=== PATIENT | female | born 1955 | race Caucasian/White ===

== ENCOUNTER 2023-05-10 13:26 | Observation (INO) | payer MEDICARE ==
--- OUTSIDE RECORDS SUMMARY | 2023-05-10 13:29 | XMS REPORT | Clinical Summary ---
Author Name Unknown Organization [facility] Address [address] [place] [address] Care Team Providers Care Saddle Maker Name Role Phone Alva Burns MD Unavailable Edith Erazo MD Primary Care Provider [phone] Allergies Active Allergy Reactions Criticality Noted Date Comments Codeine Other (See Comments) ,Shortness Of Breath High 11/23/2015 Fainting. Hydroxyzine Hcl Rash Low 11/23/2015 Medications Medication Sig Dispensed Refills Start Date End Date Status anastrozole (ARIMIDEX) 1 mg tablet TK 1 T PO QAM 3 11/30/2018 Active acyclovir (ZOVIRAX) 800 mg tablet TK 1 T PO QAM 3 11/21/2018 Active DULoxetine (CYMBALTA) 60 mg capsule TK 1 C PO D 3 11/20/2018 Active gabapentin (NEURONTIN) 600 mg tablet TK 2 TS PO BID 3 11/20/2018 Active latanoprost (XALATAN) 0.005% ophthalmic solution PLACE 1 DROP IN BOTH EYES EVERY NIGHT AT BEDTIME 2 11/01/2018 Active PARoxetine (PAXIL) 20 mg tablet TK 1 T PO QD 3 12/28/2018 Active omeprazole (PriLOSEC) 40 MG capsule TK 1 C PO BID 1 10/13/2018 Active pravastatin (PRAVACHOL) 20 mg tablet TK 1 T PO HS 1 12/25/2018 Active venlafaxine (EFFEXOR) 37.5 mg tablet TK 1 T PO BID 3 11/24/2018 Active albuterol (VENTOLIN HFA,PROAIR HFA) 90 mcg/puff inhaler Inhale 2 puffs by mouth every 6 (six) hours as needed. 0 01/22/2018 Active Active Problems Patient Care Coordination No te Formatting of this note migh t be different from the original. COVID 19 test done at [facility] on 07/16-negative (not detected)-for procedure. 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 12/22/2018 Cancer Staging:Clinical: Unsigned Pathologic:Stage IA(pT1c, pN0(sn), cM0, G2, ER+, WA+, HER2-) - Signed by Felicitas Ny NP on 01/01/2019 Obstructive sleep apnea syndrome 01/22/2018 Osteopenia 12/03/2015 Surgical History Surgery Date Site/Laterality Comments APPENDECTOMY 02/18/1978 - 02/17/1979 MASTECTOMY 02/18/1993 - 02/17/1994 Bilateral BREAST LUMPECTOMY 02/19/2008 - 02/17/2009 RECONSTRUCTION BREAST WITH BREAST IMPLANT 02/18/1993 - 02/17/1994 has had done 3 times Medical History Medical History Date Comments Hypertension 2000 Hyperlipidemia 2000 Migraine 2000 Chronic fatigue syndrome 2007 Menopause 2000 Anemia 1998 Arthritis 2010 Depressive disorder 2011 Anxiety 2012 Obsessive-compulsive disorder 2011 Breast cancer 1993 Osteopenia 2010 Family History Medical History Relation Name Comments Breast cancer Maternal Aunt Barbra Prostate cancer Maternal Uncle Fernando Leukemia Paternal Grandfather Patricio Relation Name Status Comments Maternal Aunt Barbra (Age 42) Maternal Uncle Fernando (Age 50) Paternal Grandfather Patricio (Age 46) Social History Tobacco Use Types Packs/Day Years Used Date Smoking Tobacco: Never Smokeless Tobacco: Never Alcohol Use Standard Drinks/Week Comments Never 0 (1 standard drink = 0.6 oz pur e alcohol) Sex and Gender Information Value Date Recorded Sex Assigned at Female 01/25/2019 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 Gender Identity Female 01/25/2019 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 Sexual Orientation Not on file Obstetrics History Para Term AB IAB SAB Ectopic Multiple Livin g Live Births 4 4 Date Outcome GA Total Labor Labor/2nd/3rd Weight Sex Delivery Anes PTL Jennifer A1 A5 Name Cl in Comments Menarche-7 Parity-19 Fertility-none HRT-none BF-1 year Vaginal delivery x's 4 Menopause - age 45 Plan of Treatment Health Maintenance Due Date Last Done Comments COVID-19 Vaccine (#1) 1955 Influenza Vaccine 10/19/2022 11/24/2018 Care Teams Saddle Maker Relationship Specialty Start Date End Date Alva Burns MD PCP - External Referring Internal Medicine 11/25/18 Edith Erazo MD [address] [place] [address] PCP - General Breast Medical Oncology 01/22/19
--- NOTE | 2023-05-10 13:53 | RAD REPORT ---
EXAM DESCRIPTION: CT - Ct Stroke Brain Wo Cont - 05/10/2023 1:47 pm CLINICAL HISTORY: STROKE ALERT Headache, drowsiness COMPARISON: HEAD BRAIN W O CONTRAST dated 06/06/2014 TECHNIQUE: All CT scans are performed using dose optimization technique as appropriate and may inclu de automated exposure control or mA/KV adjustment according to patient size. FINDINGS: No intracranial hemorrhage, hydrocephalus or extra-axial fluid collection.Mild generalized brain atrophy is present with mild periventricular and deep white matter chronic microvascular ische nikita changes.No areas of brain edema or evidence of midline shift. The paranasal sinuses and mastoids are clear. The calvarium is intact. IMPRESSION: No acute intracranial abnormality.
[2023-05-10 14:01] LABS: Absolute Lymphocytes (CBC) 0.8 K/uL (0.7-4.9); Absolute Monocytes 0.4 K/uL (0.1-1.3); Absolute Neutrophil 10.6 K/uL (1.8-8.0); Basophils % 0.2 % (0-1.3); Hematocrit 45.5 % (36.0-45.0); Hemoglobin 15.1 g/dL (12.0-15.0); Lymphocytes % 7.1 % (15.3-44.8); MCH 31.7 pg (27.0-35.0); MCHC 33.3 g/dL (32.0-36.0); MCV 95.4 fL (80-100); MPV 6.6 fL (7.6-11.3); Monocytes % 3.7 % (3.3-12.3); Nucleated RBC Absolute Count 0.1 (0-0); Nucleated Red Blood Cells % 0.6 % (0-0); Platelets 386 thou/uL (152-406); RBC Red Blood Cell Count 4.77 M/uL (3.86-4.86); Red Cell Distribution Width 13.3 % (12.1-15.2)
[2023-05-10 14:06] LABS: PT Prothrombin Time 11.5 SECONDS (9.5-12.5); PTT, Activated Partial Thromb 29.3 SECONDS (24.3-36.9); Protime INR 1.05
[2023-05-10 14:14] LABS: Anion Gap 9.5 mEq/L (5.0-15.0); BUN Blood Urea Nitrogen 21 mg/dL (7-18); Bicarbonate 27 mEq/L (21-32); Glomerular Filtration Rate 58 ml/min (=/>90); Glucose Level 133 mg/dL (74-106); Potassium 3.5 mEq/L (3.5-5.1); Sodium Level 136 mEq/L (136-145); Troponin High Sensitivity < 3.0 pg/mL (<58.9)
--- NOTE | 2023-05-10 14:15 | RAD REPORT ---
EXAM DESCRIPTION: CT - Head angio - 05/10/2023 1:52 pm CLINICAL HISTORY: Weakness;Numbness Headache, drowsiness COMPARISON: Ct Stroke Brain Wo Cont dated 05/10/2023; HEAD BRAIN W O CONTRAST dated 06/06/2014 TECHNIQUE: CT angiography of the head was performed with MIPs. All CT scans are performed using dose optimization technique as appropriate and may include automated exposure control or mA/KV adjustment according to patient size. FINDINGS: No evidence of large vessel occlusion. No evidence of aneurysm is detected. No flow-limiti ng stenosis or vascular malformation identified. Antegrade flow is seen in the vertebral arteries. Left vertebral artery is mildly dominant. The visualized dural venous sinuses are patent. IMPRESSION: No significant flow abnormality is detected.
--- NOTE | 2023-05-10 14:18 | RAD REPORT ---
EXAM DESCRIPTION: CT - Neck Angio - 05/10/2023 1:52 pm CLINICAL HISTORY: weakness Headache, drowsiness, CVA symptomology COMPARISON: No comparisons TECHNIQUE: CT angiography of the neck vessels was performed with MIPs. All CT scans are performed using dose optimization technique as appropriate and may include automated exposure control or mA/KV adjustment according to patient size. FINDINGS: A left aortic arch is identified with normal three vessel configuration of the great vesse ls. No significant flow abnormality is seen of the common carotid bilaterally. Moderate hard plaque is seen both carotid bulbs, greater on the left. The findings result in stenosis less than 50% bilaterally based on NASCET criteria. Normal flow is seen within both vertebral arteries. IMPRESSION: Moderate hard plaquing is seen in both carotid bulbs, more significant on the left. The findings result in less than 50% stenosis bilaterally based on NASCET criteria. NASCET criteria used. Mild 0-49% stenosis Moderate 50-69% stenosis Severe 70-99% stenosis
[2023-05-10] MEDS ORDERED: ASPIRIN 81 MG CHEWABLE TABLET ONE (14:29)
[2023-05-10] MEDS ORDERED: FOLIC ACID 5 MG/ML VIAL ONE (14:30)
[2023-05-10] MEDS ORDERED: NA CHLORIDE 0.9% 100 ML ONE (14:30)
--- NOTE | 2023-05-10 14:47 | RAD REPORT ---
EXAM DESCRIPTION: RAD - Chest Single View - 05/10/2023 2:34 pm CLINICAL HISTORY: weakness Chest pain. COMPARISON: CHEST SINGLE VIEW dated 06/06/2014 FINDINGS: Portable technique limits examination quality. The lungs are grossly clear. The heart is normal in size. No displaced fractures. IMPRESSION: No acute intrathoracic process suspected.
--- NOTE | 2023-05-10 15:01 | EDPHYS ---
Physician Documentation [facility] Name: Roseanna Heck Age: 68 yrs Sex: Female : 1955 Arrival Date: 05/10/2023 Time: 13:26 Bed 17 Private MD: Mathew Diaz ED Physician Solo Mortensen HPI: 05/09 14:18 This 68 yrs old Female presents to ER via Ambulatory with complaints of Chest Pain, rn Dizziness, weakness. 14:19 The patient presents to the emergency department with weakness of the right upper rn extremity, right lower extremity, difficult walking, paresthesias of the right lower extremity, right upper extremity. Onset: The symptoms/episode began/occurred this morning. Associated signs and symptoms: Pertinent positives: weakness, Pertinent negatives: altered mental status, fever. Severity of symptoms: At their worst the symptoms were moderate in the emergency department the symptoms are unchanged. The patient has not experienced similar symptoms in the past. Patient reports woke up this morning with right-sided weakness and numbness already present. Was feeling a little strange last night as well. Went to lunch with family member and started to have difficulty walking and change in speech as well. Weakness and numbness has gotten worse and is requiring assistance to walk.. - Family history:: not pertinent. - Hospitalizations: : No recent hospitalization is reported. ROS: 14:19 Constitutional: Negative for fever, chills, and weight loss, Cardiovascular: Positive rn for chest pain Respiratory: Negative for shortness of breath, cough, wheezing, and pleuritic chest pain, Abdomen/GI: Negative for abdominal pain, nausea, vomiting, diarrhea, and constipation, MS/Extremity: Negative for injury and deformity, Skin: Negative for injury, rash, and discoloration, Neuro: Positive for right-sided weakness and numbness Exam: 14:19 Constitutional: This is a well developed, well nourished patient who is awake, alert, rn and in no acute distress. Cardiovascular: Regular rate and rhythm. No pulse deficits. Respiratory: No increased work of breathing, no retractions or nasal flaring. Neuro: Awake and alert, GCS 15, oriented to person, place, time, and situation. Left lower facial droop. Motor strength 4/5 RUE and RLE with drift present. Decreased sensation right upper extremity and right lower extremity. Ataxic gait and requiring assistance to ambulate to triage 14:59 ECG was reviewed by the Attending Physician. rn Vital Signs: 13:33 BP 140 / 89; Pulse 96; Resp 16; Pulse Ox 97% on R/A; iw 14:25 BP 144 / 77; Pulse 92; Resp 16; Temp 98.1(TE); Pulse Ox 99% on R/A; kd3 15:00 BP 126 / 72; Pulse 89; Resp 18; Pulse Ox 98% on R/A; db 15:30 BP 134 / 71; Pulse 86; Resp 18; Pulse Ox 99% on R/A; db 16:00 BP 125 / 83; Pulse 93; Resp 18; Pulse Ox 99% on R/A; db 17:57 BP 129 / 79; Pulse 92; Resp 16; Pulse Ox 99% on R/A; kd3 NIH Stroke Scale Scores: 14:30 NIHSS Score: 4 db Elena Coma Score: 14:30 Eye Response: spontaneous(4). Motor Response: obeys commands(6). Verbal Response: db oriented(5). Total: 15. MDM: 13:27 Patient medically screened. rn 14:59 Data reviewed: vital signs, nurses notes, lab test result(s), EKG, radiologic studies, rn CT scan, and as a result, I will admit patient. Consideration of Admission/Observation Patient was admitted/placed on observation. Escalation of care including admission/observation considered. ED course: Patient woke up with symptoms, last known normal was prior to going to bed last night at which point she already felt off. Patient not TNK candidate due to presentation outside of window. Troponin negative. CT head and angio is no acute LVO. Will admit to hospitalist service with neurology consult.. 14:59 Counseling: I had a detailed discussion with the patient and/or guardian regarding the rn historical points, exam findings, and any diagnostic results supporting the discharge/admit diagnosis, lab results, radiology results, the need for further work-up and treatment in the hospital. 05/09 13:37 Order name: Basic Metabolic Panel; Complete Time: 14:17 rn 05/09 13:37 Order name: CBC with Diff; Complete Time: 15:48 rn 05/09 13:37 Order name: High Sensitivity Troponin; Complete Time: 14:17 rn 05/09 13:37 Order name: Protime (+inr); Complete Time: 14:17 rn 05/09 13:37 Order name: Ptt, Activated; Complete Time: 14:17 rn 05/09 14:35 Order name: Manual Differential; Complete Time: 15:48 [facility] 05/09 14:36 Order name: CREATININE WHOLE BLOOD; Complete Time: 14:57 EDW[facility] 05/09 15:49 Order name: Urinalysis w/ reflexes; Complete Time: 17:41 rn 05/09 13:37 Order name: CT Head Angio; Complete Time: 14:17 rn 05/09 13:37 Order name: CT Neck Angio; Complete Time: 14:57 rn 05/09 13:37 Order name: CT Stroke Brain w/o Contrast; Complete Time: 14:17 rn 05/09 13:37 Order name: Stroke CXR 1 View; Complete Time: 14:57 rn 05/09 15:43 Order name: Echo with Doppler [facility] 05/09 15:43 Order name: Stroke Protocol [facility] 05/09 16:51 Order name: MRI; Complete Time: 17:41 [facility] 05/09 13:37 Order name: EKG; Complete Time: 13:38 rn 05/09 15:43 Order name: CONS Physician Consult [facility] 05/09 15:43 Order name: IRF Screen [facility] 05/09 15:43 Order name: Physical Therapy Consult [facility] 05/09 15:43 Order name: Speech Therapy Consult [facility] 05/09 13:37 Order name: Accucheck; Complete Time: 14:38 rn 05/09 13:37 Order name: Cardiac monitoring; Complete Time: 14:24 rn 05/09 13:37 Order name: EKG - Nurse/Tech; Complete Time: 14:24 rn 05/09 13:37 Order name: IV Saline Lock; Complete Time: 13:52 rn 05/09 13:37 Order name: Labs collected and sent; Complete Time: 13:52 rn 05/09 13:37 Order name: NPO; Complete Time: 14:24 rn 05/09 13:37 Order name: O2 Per Protocol; Complete Time: 14:24 rn 05/09 13:37 Order name: O2 Sat Monitoring; Complete Time: 14:24 rn 05/09 13:37 Order name: Stroke Swallow Screen; Complete Time: 14:36 rn EC:59 Rate is 92 beats/min. Rhythm is regular. QRS [place] is Normal. [place] interval is normal. QRS rn interval is normal. QT interval is normal. No Q waves. T waves are Normal. No ST changes noted. Clinical impression: NSR w/ Non-specific ST/T Changes. Interpreted by me. Reviewed by me. Administered Medications: 14:35 Drug: Aspirin PO Chewable Tablet 324 mg PO once; 81 mg tablets x 4 Route: PO; kd3 14:35 Drug: foLIC Acid IVPB 1 mg IVPB once Route: IVPB; Site: right antecubital; kd3 Disposition Summary: 05/10/23 15:01 Hospitalization Ordered Notes: Hospitalization Status: Inpatient Admission rn Provider: Betsy Kidd rn Location: Telemetry/MedSurg (Inpatient) rn Condition: Stable rn Problem: new rn Symptoms: are unchanged rn Bed/Room Type: Standard rn Room Assignment: 215(05/10/23 16:35) eb Diagnosis - Cerebral infarction, unspecified rn - Weakness rn - Paresthesia of skin rn - Facial weakness rn Forms: - Medication Reconciliation Form rn - SBAR form rn - Leadership Thank You Letter rn NIH Stroke Scale - NIH Stroke Score Date: 05/10/2023 Time: 14:30 Total Score = 4 10. Dysarthria (speech clarity - read or repeat words) - 0(Normal) 11. Extinction and Inattention (visual/tactile/auditory/spatial/personal) - 0(No abnormality) 1a. Level of Consciousness (LOC) - 0(Alert) 1b. Level of Consciousness (LOC) (Month \T\ Age) - 0(Both) 1c. LOC Commands (Open \T\ Closes Eyes/Machine Cage Maker) - 0(Both) 2. Best Gaze (Lateral Gaze Paresis) - 0(Normal) 3. Visual Field Loss - 0(No visual loss) 4. Facial Palsy - 1(Minor Paralysis) 5a. Left Arm: Motor (10-second hold) - 0(No drift) 5b. Right Arm: Motor (10-second hold) - 1(Drift) 6a. Left Leg: Motor (5-second hold - always test supine) - 0(No drift) 6b. Right Leg: Motor (5-second hold - always test supine) - 1(Drift) 7. Limb Ataxia (finger/nose \T\ heel/gore - test with eyes open) - 0(Absent) 8. Sensory Loss (pinprick arms/legs/face) - 1(Mild to moderate loss) 9. Best Language: Aphasia (description/naming/reading) - 0(No aphasia) Initials: db Signatures: Dispatcher [employer] Solo Walton MD MD rn Botello, Alyse Bradfodr RN RN kd3 Corrections: (The following items were deleted from the chart) 16:35 15:01 faustino terry
--- NOTE | 2023-05-10 15:01 | ER ---
Nurse's Notes [facility] Name: Roseanna Heck Age: 68 yrs Sex: Female : 1955 Arrival Date: 05/10/2023 Time: 13:26 Bed 17 Private MD: Mathew Diaz Diagnosis: Cerebral infarction, unspecified;Weakness;Paresthesia of skin;Facial weakness Presentation: 05/09 13:31 Chief complaint: Patient states: started with chest pain, got light headed, dizzy , iw feels weak, this morning her right side felt numb and tingly since this morning. 13:32 Acuity: VICK 2 iw 13:33 Ebola Screen: No symptoms or risks identified at this time. Risk Assessment: Do you iw want to hurt yourself or someone else? Patient reports no desire to harm self or others. 13:33 Method Of Arrival: Ambulatory iw Triage Assessment: 13:31 General: Appears in no apparent distress. Behavior is calm, cooperative. General: iw Reports feeling ill for fatigue for. Pain: Complains of pain in chest. Neuro: Level of Consciousness is awake, alert, obeys commands. Cardiovascular: Patient's skin is warm and dry. Derm: Skin is intact, is healthy with good turgor. - Family history:: not pertinent. - Hospitalizations: : No recent hospitalization is reported. Screenin:35 [place] Swallow Protocol Exclusion Criteria: Exclusion Criteria Result: Proceed Brief kd3 Cognitive Screen What is your name? Normal, Where are you right now? Normal, What year is it? Normal. Oral Mechanism Examination Facial Symmetry: Normal, Motion: Normal, Lip Closure: Normal, Oral Mechanism Result: Normal. 3 oz Water Swallow Challenge: Pt able to drink all water without stopping, coughing, choking or throat clearing: Yes Result: PASS MD Notified: Solo Mortensen MD. 14:35 [facility] ED Fall Risk Assessment (Adult) History of falling in the last 3 months, db including since admission No falls in past 3 months (0 pts) Confusion or Disorientation No (0 pts) Intoxicated or Sedated No (0 pts) Impaired Gait No (0 pts) Mobility Assist Device Used No (0 pt) Altered Elimination No (0 pt) Score/Fall Risk Level 0 - 2 = Low Risk. Abuse screen: Denies threats or abuse. Denies injuries from another. Nutritional screening: No deficits noted. Tuberculosis screening: No symptoms or risk factors identified. Assessment: 13:40 General: Pt escorted to the CT scanner by composite technician and myself. . kd3 13:52 General: Pt lab work collected and sent from the CT room by this RN . kd3 14:30 Reassessment: Patient appears in no apparent distress at this time. Patient and/or db family updated on plan of care and expected duration. Pain level reassessed. Patient is alert, oriented x 3, equal unlabored respirations, skin warm/dry/pink. General: Appears in no apparent distress. comfortable, Behavior is calm, cooperative. Pain: Complains of pain in chest. Neuro: Level of Consciousness is awake, alert, obeys commands, Oriented to person, place, time, situation. Respiratory: Airway is patent Respiratory effort is even, unlabored, Respiratory pattern is regular, symmetrical. 15:30 Reassessment: Patient appears in no apparent distress at this time. Patient and/or db family updated on plan of care and expected duration. Pain level reassessed. Patient is alert, oriented x 3, equal unlabored respirations, skin warm/dry/pink. 16:54 General: pT INFO FAXED TO FLOOR. . kd3 Vital Signs: 13:33 BP 140 / 89; Pulse 96; Resp 16; Pulse Ox 97% on R/A; iw 14:25 BP 144 / 77; Pulse 92; Resp 16; Temp 98.1(TE); Pulse Ox 99% on R/A; kd3 15:00 BP 126 / 72; Pulse 89; Resp 18; Pulse Ox 98% on R/A; db 15:30 BP 134 / 71; Pulse 86; Resp 18; Pulse Ox 99% on R/A; db 16:00 BP 125 / 83; Pulse 93; Resp 18; Pulse Ox 99% on R/A; db 17:57 BP 129 / 79; Pulse 92; Resp 16; Pulse Ox 99% on R/A; kd3 Elena Coma Score: 14:30 Eye Response: spontaneous(4). Motor Response: obeys commands(6). Verbal Response: db oriented(5). Total: 15. NIH Stroke Scale Scores: 14:30 NIHSS Score: 4 db ED Course: 13:27 Patient arrived in ED. mr 13:27 Mathew Diaz DO is Private Physician. mr 13:27 Solo Mortensen MD is Attending Physician. rn 13:32 Triage completed. iw 13:33 Arm band placed on. iw 13:48 CT Stroke Brain w/o Contrast In Process Unspecified. EDMS 13:49 Inserted saline lock: 20 gauge in right antecubital area, using aseptic technique. kd3 Blood collected. 13:49 Initial lab(s) drawn, by me, sent to lab. kd3 13:49 Patient maintains SpO2 saturation greater than 95% on room air. kd3 13:51 Ptt, Activated Sent. kd3 13:51 Protime (+inr) Sent. kd3 13:52 High Sensitivity Troponin Sent. kd3 13:52 CBC with Diff Sent. kd3 13:52 Basic Metabolic Panel Sent. kd3 13:54 CT Head Angio In Process Unspecified. EDMS 13:54 CT Neck Angio In Process Unspecified. EDMS 14:24 Alyse Saleh, RN is Primary Nurse. kd3 14:35 Warm blanket given. db 14:35 Report given to ELIZABETH ARIAS. db 14:36 Stroke CXR 1 View In Process Unspecified. EDMS 15:00 Betsy Kidd MD is Hospitalizing Provider. rn 16:27 Patient has correct armband on for positive identification. Placed in gown. Bed in low db position. Call light in reach. Side rails up X2. Client placed on continuous cardiac and pulse oximetry monitoring. NIBP monitoring applied. stock order lister on. Pulse ox on. NIBP on. Administered Medications: 14:35 Drug: Aspirin PO Chewable Tablet 324 mg PO once; 81 mg tablets x 4 Route: PO; kd3 14:35 Drug: foLIC Acid IVPB 1 mg IVPB once Route: IVPB; Site: right antecubital; kd3 Medication: 14:30 VIS not applicable for this client. db Outcome: 15:01 Decision to Hospitalize by Provider. rn 17:57 Patient left the ED. NIH Stroke Scale - NIH Stroke Score Date: 05/10/2023 Time: 14:30 Total Score = 4 10. Dysarthria (speech clarity - read or repeat words) - 0(Normal) 11. Extinction and Inattention (visual/tactile/auditory/spatial/personal) - 0(No abnormality) 1a. Level of Consciousness (LOC) - 0(Alert) 1b. Level of Consciousness (LOC) (Month \T\ Age) - 0(Both) 1c. LOC Commands (Open \T\ Closes Eyes/Elementary School Science Teacher) - 0(Both) 2. Best Gaze (Lateral Gaze Paresis) - 0(Normal) 3. Visual Field Loss - 0(No visual loss) 4. Facial Palsy - 1(Minor Paralysis) 5a. Left Arm: Motor (10-second hold) - 0(No drift) 5b. Right Arm: Motor (10-second hold) - 1(Drift) 6a. Left Leg: Motor (5-second hold - always test supine) - 0(No drift) 6b. Right Leg: Motor (5-second hold - always test supine) - 1(Drift) 7. Limb Ataxia (finger/nose \T\ heel/gore - test with eyes open) - 0(Absent) 8. Sensory Loss (pinprick arms/legs/face) - 1(Mild to moderate loss) 9. Best Language: Aphasia (description/naming/reading) - 0(No aphasia) Initials: db Signatures: Dispatcher [employer] EDMI HuertasMagdalena, Reg Reg mr Lorna Hills, RN RN iw Solo Mortensen MD MD rn Botello, Elizabeth eb Doucette, Kyli, RN RN kd3 Maryuri Jimenez RN RN db Corrections: (The following items were deleted from the chart) 13:34 13:33 Pulse 96bpm; Resp 16bpm; Pulse Ox 97% RA; iw iw
--- NOTE | 2023-05-10 15:09 | P.HP ---
Certification for Inpatient Patient admitted to: Observation With expected LOS: >2 Midnights Patient will require the following post-hospital care: None Practitioner: I am a practitioner with admitting privileges, knowledge of patient current condition, hospital course, and medical plan of care. Services: Services provided to patient in accordance with Admission requirements found in Title 42 Section 412.3 of the Code of Federal Regulations Patient History Date of Service: 05/10/23 Reason for admission: weakness History of Present Illness: Roseanna Heck is a 68 year old female with Pmhx HTN, HLD, Hypothyroidism, anxiety, GERD, asthma who presents to the ED with chief complaint of dizziness, weakness, chest pain. She reports being NPO for a lab draw this morning, her daughter took her to lunch at a [id number] restaurant and while there she felt weak, dizzy, nausous, and had diarrhea. She called her daughter to come to the restroom and help her walk. Her daughter is at the bedside and is a good historian, she reports that for a month her mother has experienced a bad head, trouble walking, and her right side of her body will start hurting like sharp tingling. Daughter also reports confusion has increased this last month. On examination, she has some slurred speech and aphasia present. NIHSS 2. She is afebrile, hemodynamically stable, on RA with satisfactory oxygenation. Initial vitals: BP 140 / 89; Pulse 96; Resp 16; Pulse Ox 97% on R/A laboratory evaluation WBC 11.9, H/H 15/45, Platelets 386, na136, K 3.5, BUN/creatinine 21/1.04, GFR 58, serum glucose 133, troponin <3.0. Head CT reports 'No intracranial hemorrhage, hydrocephalus or extra-axial fluid collection.Mild generalized brain atrophy is present with mild periventricular and deep white matter chronic microvascular ischemic changes.No areas of brain edema or evidence of midline shift. The paranasal sinuses and mastoids are clear. The calvarium is intact. IMPRESSION: No acute intracranial abnormality.' Head CTA reports " No evidence of large vessel occlusion. No evidence of aneurysm is detected. No flow-limiting stenosis or vascular malformation identified. Antegrade flow is seen in the vertebral arteries. Left vertebral artery is mildly dominant. The visualized dural venous sinuses are patent. IMPRESSION: No significant flow abnormality is detected." Neck CTA reports "Moderate hard plaquing is seen in both carotid bulbs, more significant on the left. The findings result in less than 50% stenosis bilaterally based on NASCET criteria." MRI brain reports "No intracranial hemorrhage, hydrocephalus or extra-axial fluid collections.Generalized brain atrophy. No edema or shift of midline structures. No findings to suspect brain mass. DWI is negative for acute CVA. Midline structures are normally formed. Mastoid air cells and paranasal sinuses are clear. IMPRESSION: Negative for acute CVA or other acute abnormality." EKG Rate is 92 beats/min. Rhythm is regular. QRS [place] is Normal. [place] interval is normal. QRS interval is normal. QT interval is normal. No Q waves. T waves are Normal. No ST changes noted. Clinical impression: NSR w/ Non-specific ST/T Changes. Chest xray reports "The lungs are grossly clear. The heart is normal in size. No displaced fractures. IMPRESSION: No acute intrathoracic process suspected." Roseanna will be admitted to hospitalist service for further evaluation and treatment of acute CVA r/o. Dr. Madden has been consulted. Allergies No Known Allergies Allergy (Unverified 06/06/14 23:18) Home Medications: Acyclovir 1 tab PO DAILY 05/10/23 Albuterol Inhaler [Ventolin Inhaler*] 2 puff IH BID 05/10/23 Brompheniramine/Pseudoephed/Dm [Bromfed Dm 2-30-10 mg/5 ml Syr] 5 ml PO TIDP PRN 05/10/23 Duloxetine HCl 60 mg PO DAILY 05/10/23 Ergocalciferol (Vitamin D2) [Drisdol] 1,250 mcg PO SEECOM 05/10/23 Fluticasone Propionate [Flovent Diskus] 1 puff IH BID 05/10/23 Gabapentin [Neurontin] 1 tab PO BID 05/10/23 Levothyroxine [Synthroid] 50 mcg PO [id number] 05/10/23 Lisinopril/Hydrochlorothiazide [Lisinopril-Hctz 20-25 mg Tab] 0.5 tab PO DAILY 05/10/23 Loratadine [Claritin*] 10 mg PO DAILY 05/10/23 Omeprazole [Prilosec] 40 mg PO BID 05/10/23 Pravastatin [Pravachol*] 1 tab PO BEDTIME 05/10/23 Topiramate [Topamax] 50 mg PO BID 05/10/23 Valacyclovir HCl [Valacyclovir] 1 tab PO DAILY 05/10/23 Venlafaxine HCl [Effexor*] 37.5 mg PO DAILY 05/10/23 methocarbamoL [Methocarbamol] 750 mg PO PRN 05/10/23 - Past Medical/Surgical History -: breast cancer 24 years -: HTN -: HLD -: asthma -: naxiety -: GERD -: bilateral mastectomy - Social History Smoking Status: Never smoker Alcohol use: No CD- Drugs: No Review of Systems General: Weakness Cardiovascular: Chest Pain Musculoskeletal: Other (right side of body with stinging tingling) Neurological: Change in Speech, Confusion Physical Examination - Physical Exam General: Alert, In no apparent distress, Oriented x3 HEENT: Atraumatic, Normocephalic, PERRLA Neck: Supple, 2+ carotid pulse no bruit, JVD not distended Respiratory: Clear to auscultation bilaterally, Normal air movement Cardiovascular: Normal pulses, Regular rate/rhythm, Normal S1 S2 Capillary refill: <2 Seconds Gastrointestinal: Normal bowel sounds, Soft and benign, Non-distended Musculoskeletal: No clubbing, No contractures Integumentary: No rashes Neurological: Normal strength at 5/5 x4 extr, Normal tone, Abnormal speech (slurred) - Studies Laboratory Data (last 24 hrs) 05/10/23 05/10/23 05/10/23 13:49 13:49 13:49 WBC 11.90 H Hgb 15.1 H Hct 45.5 H Plt Count 386 PT 11.5 INR 1.05 APTT 29.3 Sodium 136 Potassium 3.5 BUN 21 H Creatinine 1.04 H Glucose 133 H Assessment and Plan - Plan Assessment and plan Acute CVA r/o Generalized Weakness Chest Pain -Head CT reports 'No intracranial hemorrhage, hydrocephalus or extra-axial fluid collection.Mild generalized brain atrophy is present with mild periventricular and deep white matter chronic microvascular ischemic changes.No areas of brain edema or evidence of midline shift. The paranasal sinuses and mastoids are clear. The calvarium is intact. IMPRESSION: No acute intracranial abnormality.' -Head CTA reports " No evidence of large vessel occlusion. No evidence of aneurysm is detected. No flow-limiting stenosis or vascular malformation identified. Antegrade flow is seen in the vertebral arteries. Left vertebral artery is mildly dominant. The visualized dural venous sinuses are patent. IMPRESSION: No significant flow abnormality is detected." -Neck CTA reports "Moderate hard plaquing is seen in both carotid bulbs, more significant on the left. The findings result in less than 50% stenosis bilat erally based on NASCET criteria." -MRI brain reports "No intracranial hemorrhage, hydrocephalus or extra-axial fluid collections.Generalized brain atrophy. No edema or shift of midline structures. No findings to suspect brain mass. DWI is negative for acute CVA. Midline structures are normally formed. Mastoid air cells and paranasal sinuses are clear. IMPRESSION: Negative for acute CVA or other acute abnormality." -CXR "No acute intrathoracic process suspected" -EKG without ST changes - Dr. Madden consulted -Asa. plavix, statin, folic acid daily -ECHO ordered -PT/TEACHER'S ASSISTANT consulted -A1C, lipid panel, TSH/freeT4 pending -Allow permissive HTN tonight -NIHSS 2 d/t aphasia and dysarthria History of HTN History of HLD History of hypothyroidism- not on medication at this time History of anxiety History of GERD History of Asthma -Restart home medications when available and when appropriate DVT ppx lovenox Full code LOS 2 days Discharge Plan: Home Plan to discharge in: 24 Hours - Advance Directives Does patient have a Living Will: No Does patient have a Durable POA for Healthcare: No Time Spent Managing Pts Care (In Minutes): 50
[2023-05-10 15:37] LABS: Band Neutrophils 17 % (0-1); Differential Total Cells Count 100; Lymphocytes 4 % (15-42); Monocytes 6 % (0-10); Reactive Lymphocytes 3 %; Segmented Neutrophils 70 % (40-80)
[2023-05-10 15:38] LABS: Blood Morphology Comment NOT SEEN (NOT SEEN); Platelet Estimate ADEQ
--- NOTE | 2023-05-10 16:51 | RAD REPORT ---
EXAM DESCRIPTION: MRI - Brain Wo Cont - 05/10/2023 4:44 pm CLINICAL HISTORY: CVA r/o Headache, drowsiness, CVA symptomology COMPARISON: Head angio dated 05/10/2023 TECHNIQUE: Multi-sequence, multiplanar MR imaging of the brain was performed without contrast. FINDINGS: No intracranial hemorrhage, hydrocephalus or extra-axial fluid collections.Generalized bra in atrophy. No edema or shift of midline structures. No findings to suspect brain mass. DWI is negati ve for acute CVA. Midline structures are normally formed. Mastoid air cells and paranasal sinuses are clear. IMPRESSION: Negative for acute CVA or other acute abnormality.
[2023-05-10 17:10] LABS: Sqamous Epithelial <5 /HPF (None Seen); Urine Bacteria None Seen /HPF (<20); Urine Bilirubin NEGATIVE (Negative); Urine Blood Negative (Negative); Urine Clarity Clear (Clear); Urine Color Light-Yellow (Yellow); Urine Culture Reflex Order NOT NEEDED; Urine Glucose NEGATIVE (Negative); Urine Ketones NEGATIVE (Negative); Urine Microscopic Reflex YN ORDER UMIC; Urine Mucus Slight /HPF (None Seen); Urine Nitrite NEGATIVE (Negative); Urine Protein TRACE (Negative); Urine RBC <5 /HPF (None Seen); Urine Urobilinogen Normal (Normal); Urine WBC <5 /HPF (<5)
[2023-05-10 17:39] LABS: Specific Gravity > 1.030 (1.005-1.030)
[2023-05-10] MEDS: NA CHLORIDE 0.9% 1,000 ML IV SCH (18:29)
[2023-05-10 18:54] VITALS: BMI 27.1
[2023-05-10] MEDS ORDERED: PNEUMOCOCCAL VACCINE 0.5 ML IMVAC ONE (20:00)
[2023-05-10] MEDS ORDERED: INFLUENZA VACCINE (for 6+ mo) 0.5 ML DOSE IMVAC ONE (20:00)
[2023-05-10] MEDS: ATORVASTATIN 40 MG TAB PO SCH (20:30)
[2023-05-10] MEDS ORDERED: BROMFED DM PO PRN (22:02)
[2023-05-10] MEDS ORDERED: DRISDOL (VITAMIN D=ERGOCALCIFEROL) 50000 UNIT CAP PO SCH (23:00)
[2023-05-10] MEDS ORDERED: methocarbamoL 750 MG TAB PO SCH (23:00)
[2023-05-10] MEDS: MORPHINE 2 MG/ML SYR IV ONE (23:37)
[2023-05-11 01:45] VITALS: O2SAT 96
[2023-05-11] MEDS: ONDANSETRON 4 MG/2 ML VIAL ONE (02:47)
[2023-05-11] MEDS: ONDANSETRON 4 MG/2 ML VIAL IV PRN (02:48)
[2023-05-11] MEDS: LEVOTHYROXINE SOD 0.05 MG TABLET PO SCH (05:28)
[2023-05-11 07:14] LABS: Absolute Lymphocytes (CBC) 0.5 K/uL (0.7-4.9); Absolute Monocytes 0.4 K/uL (0.1-1.3); Absolute Neutrophil 4.7 K/uL (1.8-8.0); Basophils % 0.1 % (0-1.3); Hematocrit 38.6 % (36.0-45.0); Lymphocytes % 9.2 % (15.3-44.8); MCH 31.8 pg (27.0-35.0); MCHC 33.8 g/dL (32.0-36.0); MCV 94.2 fL (80-100); MPV 6.5 fL (7.6-11.3); Neutrophils % 83.7 % (41.7-73.7); Platelets 294 thou/uL (152-406); RBC Red Blood Cell Count 4.09 M/uL (3.86-4.86); Red Cell Distribution Width 13.1 % (12.1-15.2)
--- NOTE | 2023-05-11 07:41 | P.PN ---
Date of Service: 05/11/23 Subjective ROS 10 point ROS as noted above, otherwise negative Physical Exam General: Alert, In no apparent distress, Oriented x3 HEENT: Atraumatic, Normocephalic, PERRLA Neck: Supple, 2+ carotid pulse no bruit, JVD not distended Respiratory: Clear to auscultation bilaterally, Normal air movement Cardiovascular: Normal pulses, Regular rate/rhythm, Normal S1 S2 Capillary refill: <2 Seconds Gastrointestinal: Normal bowel sounds, Soft and benign, Non-distended Musculoskeletal: No clubbing, No contractures Integumentary: No rashes Neurological: Normal strength at 5/5 x4 extr, Normal tone, Abnormal speech (slurred) Vitals Reviewed Problem list Acute CVA vs TIA Generalized Weakness Chest Pain History of HTN History of HLD History of hypothyroidism History of anxiety History of GERD History of Asthma Assessment and Plan Acute CVA vs TIA Generalized Weakness Chest Pain -Head CT reports 'No intracranial hemorrhage, hydrocephalus or extra-axial fluid collection.Mild generalized brain atrophy is present with mild periventricular and deep white matter chronic microvascular ischemic changes.No areas of brain edema or evidence of midline shift. The paranasal sinuses and mastoids are clear. The calvarium is intact. IMPRESSION: No acute intracranial abnormality.' -Head CTA reports " No evidence of large vessel occlusion. No evidence of aneurysm is detected. No flow-limiting stenosis or vascular malformation identified. Antegrade flow is seen in the vertebral arteries. Left vertebral artery is mildly dominant. The visualized dural venous sinuses are patent. IMPRESSION: No significant flow abnormality is detected." -Neck CTA reports "Moderate hard plaquing is seen in both carotid bulbs, more significant on the left. The findings result in less than 50% stenosis bilaterally based on NASCET criteria." -MRI brain reports "No intracranial hemorrhage, hydrocephalus or extra-axial fluid collections.Generalized brain atrophy. No edema or shift of midline structures. No findings to suspect brain mass. DWI is negative for acute CVA. Midline structures are normally formed. Mastoid air cells and paranasal sinuses are clear. IMPRESSION: Negative for acute CVA or other acute abnormality." -CXR "No acute intrathoracic process suspected" -EKG without ST changes - Dr. Madden consulted -Asa. plavix, statin, folic acid daily -ECHO ordered -PT/TENNIS PLAYER consulted -A1C, lipid panel, TSH/freeT4 pending -Allow permissive HTN tonight -NIHSS 2 d/t aphasia and dysarthria History of HTN History of HLD History of hypothyroidism- not on medication at this time History of anxiety History of GERD History of Asthma -Restart home medications when available and when appropriate DVT ppx lovenox Full code LOS 2 days
[2023-05-11 07:44] LABS: Anion Gap 8.6 mEq/L (5.0-15.0); Phosphorus 2.1 mg/dL (2.5-4.9); Potassium 3.6 mEq/L (3.5-5.1); Thyroid Stimulating Hormone 0.425 uIU/mL (0.358-3.740)
[2023-05-11] MEDS: FLUTICASONE 50MCG NASAL SPRAY NAS SCH (09:00)
[2023-05-11] MEDS: lisinopriL 10 MG TAB PO SCH (09:00)
[2023-05-11] MEDS: HOME MED 1 EA UNK (Valacyclovir Hcl [Valacyclovir] 1,000 MG Tablet) PO SCH (09:00)
[2023-05-11] MEDS: VENLAFAXINE HCL XR 37.5MG CAP PO SCH (09:00)
[2023-05-11] MEDS: ALBUTEROL INHALER 200 PUFF/6.7 GM IH SCH (09:00)
[2023-05-11] MEDS: hydroCHLOROthiazide 12.5 MG CAP PO SCH (09:00)
[2023-05-11] MEDS: ACETAMINOPHEN 500 MG TAB PO PRN (10:13)
[2023-05-11] MEDS: PANTOPRAZOLE 40MG TABLET PO SCH (11:08)
[2023-05-11] MEDS: FOLIC ACID 1 MG TABLET PO SCH (11:09)
[2023-05-11] MEDS: LORATADINE 10 MG TAB PO SCH (11:09)
[2023-05-11] MEDS: ASPIRIN EC 81 MG TAB PO SCH (11:09)
[2023-05-11] MEDS: TOPIRAMATE 25 MG TAB PO SCH (11:10)
[2023-05-11] MEDS: DULOXETINE 30 MG CAP PO SCH (11:10)
[2023-05-11] MEDS: ACYCLOVIR 400 MG TABLET PO SCH (11:11)
[2023-05-11] MEDS: GABAPENTIN 300 MG CAP PO SCH (11:11)
[2023-05-11] MEDS: CLOPIDOGREL 75 MG TABLET PO SCH (11:12)
[2023-05-11] MEDS: ENOXAPARIN 40 MG/0.4 ML SQ SCH (11:18)
--- NOTE | 2023-05-11 13:12 | P.DS ---
Admission Date: 05/10/23 Discharge Date: 05/11/23 Disposition: ROUTINE DISCHARGE Discharge Condition: GOOD Reason for Admission: weakness Brief History of Present Illness: Diagnosis Acute CVA vs TIA Generalized Weakness Chest Pain History of HTN History of HLD History of hypothyroidism History of anxiety History of GERD History of Asthma HPI 05/10/23 Roseanna Heck is a 68 year old female with Pmhx HTN, HLD, Hypothyroidism, anxiety, GERD, asthma who presents to the ED with chief complaint of dizziness, weakness, chest pain. She reports being NPO for a lab draw this morning, her daughter took her to lunch at a [employer] and while there she felt weak, dizzy, nausous, and had diarrhea. She called her daughter to come to the restroom and help her walk. Her daughter is at the bedside and is a good historian, she reports that for a month her mother has experienced a bad head, trouble walking, and her right side of her body will start hurting like sharp tingling. Daughter also reports confusion has increased this last month. On examination, she has some slurred speech and aphasia present. NIHSS 2. She is afebrile, hemodynamically stable, on RA with satisfactory oxygenation. Initial vitals: BP 140 / 89; Pulse 96; Resp 16; Pulse Ox 97% on R/A laboratory evaluation WBC 11.9, H/H 15/45, Platelets 386, na136, K 3.5, BUN/creatinine 21/1.04, GFR 58, serum glucose 133, troponin <3.0. Head CT reports 'No intracranial hemorrhage, hydrocephalus or extra-axial fluid collection.Mild generalized brain atrophy is present with mild periventricular and deep white matter chronic microvascular ischemic changes.No areas of brain edema or evidence of midline shift. The paranasal sinuses and mastoids are clear. The calvarium is intact. IMPRESSION: No acute intracranial abnormality.' Head CTA reports " No evidence of large vessel occlusion. No evidence of aneurysm is detected. No flow-limiting stenosis or vascular malformation identified. Antegrade flow is seen in the vertebral arteries. Left vertebral artery is mildly dominant. The visualized dural venous sinuses are patent. IMPRESSION: No significant flow abnormality is detected." Neck CTA reports "Moderate hard plaquing is seen in both carotid bulbs, more significant on the left. The findings result in less than 50% stenosis bilaterally based on NASCET criteria." MRI brain reports "No intracranial hemorrhage, hydrocephalus or extra-axial fluid collections.Generalized brain atrophy. No edema or shift of midline structures. No findings to suspect brain mass. DWI is negative for acute CVA. Midline structures are normally formed. Mastoid air cells and paranasal sinuses are clear. IMPRESSION: Negative for acute CVA or other acute abnormality." EKG Rate is 92 beats/min. Rhythm is regular. QRS [place] is Normal. [place] interval is normal. QRS interval is normal. QT interval is normal. No Q waves. T waves are Normal. No ST changes noted. Clinical impression: NSR w/ Non-specific ST/T Changes. Chest xray reports "The lungs are grossly clear. The heart is normal in size. No displaced fractures. IMPRESSION: No acute intrathoracic process suspected." Roseanna will be admitted to hospitalist service for further evaluation and treatment of acute CVA r/o. Dr. Madden has been consulted. Hospital Course: Roseanna Heck is a pleasant 68 year old female with a past medical history significant for HTN, HLD, Hypothyroidism, anxiety, GERD, asthma who was admitted to the [facility] on 05/10/23 for acute CVA vs TIA. Roseanna presented to ED with chief complaint of dizziness, weakness, and chest pain. She had gone all day n.p.o. for lab draw that morning. While at lunch she became weak, dizzy, nauseous, and had diarrhea. She called her daughter from the bathroom because she could not walk. She has a one month history of right-sided painful tingling that wakes her up at night. Her daughter is reported a one month history of a bad headache and trouble walking. CT scan and MRI both do not indicate a CVA but symptoms could still be a result of TIA. She can follow-up with Dr. Madden with all her symptoms and recent admission. CTA neck reported moderate heart plaquing in both carotid bulbs more significant on the left. Follow-up with vascular surgery for further evaluation. with Troponins have trended flat, EKG was negative, and chest pain has been relieved . She is tolerating p.o. diet, ambulating independently, on room air, improvement symptoms, and hemodynamically stable ready for discharge. On 05/11/23, Roseanna was seen on morning rounds and deemed medically stable for discharge. Roseanna was discharged with instructions to schedule follow-up appointments with PCP and Dr. Madden. Roseanna was provided prescriptions for Aspirin. The patient and family members were given the opportunity to ask questions and reported no further questions. Furthermore, all questions were answered to the best of my ability. A copy of this discharge summary will be sent to the above providers to facilitate continuity of care. Today, I personally spent 50 minutes with Roseanna, of which greater than 50% of the time was spent in patient education, counseling, and coordination of care as described above. Physical Exam General: AAOx3, NAD, conversing well HEENT: Atraumatic, Normocephalic, PERRLA Neck: Supple, 2+ carotid pulse no bruit, JVD not distended Respiratory: Clear to auscultation bilaterally, symmetrical chest wall movement, on room air Cardiovascular: RRR, S1 S2 present, no murmur noted Capillary refill: <2 Seconds Gastrointestinal: Normoactive bowel sounds, Soft and benign on palpation, ND/NT Musculoskeletal: No clubbing, No contractures Integumentary: No rashes Neurological: Normal strength at 5/5 x4 extr, Normal tone, Abnormal speech (slurred) Vital Signs/Physical Exam: Temp Pulse Resp BP Pulse Ox 97.2 F 78 17 108/69 94 05/11/23 12:00 05/11/23 12:00 05/11/23 12:00 05/11/23 12:00 05/11/23 12:00 Laboratory Data at Discharge: WBC 5.60 thou/uL (4.3-10.9) 05/11/23 06:00 Hgb 13.0 g/dL (12.0-15.0) D 05/11/23 06:00 Hct 38.6 % (36.0-45.0) 05/11/23 06:00 Plt Count 294 thou/uL (152-406) 05/11/23 06:00 PT 11.5 SECONDS (9.5-12.5) 05/10/23 13:49 INR 1.05 05/10/23 13:49 APTT 29.3 SECONDS (24.3-36.9) 05/10/23 13:49 Sodium 137 mEq/L (136-145) 05/11/23 06:00 Potassium 3.6 mEq/L (3.5-5.1) 05/11/23 06:00 BUN 17 mg/dL (7-18) 05/11/23 06:00 Creatinine 0.78 mg/dL (0.55-1.02) 05/11/23 06:00 Glucose 109 mg/dL (74-106) H 05/11/23 06:00 Phosphorus 2.1 mg/dL (2.5-4.9) L 05/11/23 06:00 Magnesium 2.0 mg/dL (1.6-2.4) 05/11/23 06:00 Triglycerides 101 mg/dL (<150) 05/11/23 06:00 Cholesterol 169 mg/dL (<200) 05/11/23 06:00 HDL Cholesterol 45 mg/dL (40-60) 05/11/23 06:00 Cholesterol/HDL Ratio 3.76 05/11/23 06:00 Home Medications: Acyclovir 1 tab PO DAILY 05/10/23 Albuterol Inhaler [Ventolin Inhaler*] 2 puff IH BID 05/10/23 Brompheniramine/Pseudoephed/Dm [Bromfed Dm 2-30-10 mg/5 ml Syr] 5 ml PO TIDP PRN 05/10/23 Duloxetine HCl 60 mg PO DAILY 05/10/23 Ergocalciferol (Vitamin D2) [Drisdol] 1,250 mcg PO SEECOM 05/10/23 Fluticasone Propionate [Flovent Diskus] 1 puff IH BID 05/10/23 Gabapentin [Neurontin] 1 tab PO BID 05/10/23 Levothyroxine [Synthroid*] 50 mcg PO [id number] 05/10/23 Lisinopril/Hydrochlorothiazide [Lisinopril-Hctz 20-25 mg Tab] 0.5 tab PO DAILY 05/10/23 Loratadine [Claritin*] 10 mg PO DAILY 05/10/23 Omeprazole [Prilosec] 40 mg PO BID 05/10/23 Pravastatin [Pravachol*] 1 tab PO BEDTIME 05/10/23 Topiramate [Topamax] 50 mg PO BID 05/10/23 Valacyclovir HCl [Valacyclovir] 1 tab PO DAILY 05/10/23 Venlafaxine HCl [Effexor*] 37.5 mg PO DAILY 05/10/23 methocarbamoL [Methocarbamol] 750 mg PO PRN 05/10/23 Aspirin [Aspirin EC 81 MG] 162 mg PO DAILY #60 tab 05/11/23 New Medications: Aspirin [Aspirin EC 81 MG] 162 mg PO DAILY #60 tab Physician Discharge Instructions: Roseanna presented to ED with chief complaint of dizziness, weakness, and chest pain. She had gone all day n.p.o. for lab draw that morning. While at lunch she became weak, dizzy, nauseous, and had diarrhea. She called her daughter from the bathroom because she could not walk. She has a one month history of right-sided painful tingling that wakes her up at night. Her daughter is reported a 1 month history of bad headache, trouble walking. CT scan and MRI both do not indicate a CVA but symptoms could still be a result of TIA. She can follow-up with Dr. Madden with all her symptoms and recent admission. CTA neck reported moderate heart plaquing in both carotid bulbs more significant on the left. Follow-up with vascular surgery for further evaluation. -DC IV and DC home -Follow-up with PCP in 1 to 2 weeks -Follow-up with Neurology in 1 to 2 weeks -Please call Dr. Kidd at [phone] if any questions regarding hospital stay -Please call nursing station at [phone] if any nursing or medication questions -Return to the emergency room if symptoms worsen Diet: AHA Activity: Fall precautions Followup: Mathew Diaz DO [Primary Care Provider] - Mp Madden MD [ASSOCIATE-ACTIVE - CAN ADMIT] - Time spent managing pt's care (in minutes): 50
[2023-05-11 18:26] VITALS: BP 108/81; TEMP 98.2
[2023-05-11] MEDS ORDERED: HOME MED 1 EA UNK (Pravastatin [Pravachol*] 40 MG/TAB Tab) PO SCH (21:00)
--- NOTE | 2023-05-13 14:26 | EKG ---
Test Date: 2023-05-10 Test Time: 14:08:23 Manager Investigations: DANAE MEASUREMENT RESULTS: Intervals: Rate: 92 [place]: 164 QRSD: 76 QT: 368 QTc: 455 [place]: P: 78 [place]: 164 QRS: 80 T: 77 INTERPRETIVE STATEMENTS: Normal sinus rhythm Low voltage QRS Cannot rule out Anterior infarct, age undetermined Abnormal ECG Compared to ECG 06/06/2014 21:14:57 Myocardial infarct finding now present Electronically Signed On 05-13-23 14:16:39 CDT by Rojelio Powell
== END 2023-05-11 17:53 | disposition home or self-care (01) ==
LOC: ER 13:26 → ERHOLD 15:32 → 2ND 16:40
PROVIDERS: ADMIT Hospitalist; ATTEND Hospitalist
DX: R53.1 Weakness (principal); I65.23 Occlusion and stenosis of bilateral carotid arteries; R07.9 Chest pain, unspecified; E78.5 Hyperlipidemia, unspecified; E03.9 Hypothyroidism, unspecified; F41.9 Anxiety disorder, unspecified; K21.9 Gastro-esophageal reflux disease without esophagitis; J45.909 Unspecified asthma, uncomplicated; R42 Dizziness and giddiness; R19.7 Diarrhea, unspecified; R47.81 Slurred speech; R47.01 Aphasia; R20.2 Paresthesia of skin
CPT/HCPCS: 93005; 85025 ×2; 81001; 80048 ×2; 36415; 83735; 84100; 85610; 80061; 82565; 85730; 84443; 83036; 84484 ×3; 84439; 70496; 70498; 70450; 71045; 70551; 96374; 99285; Q9967; J1650; J2270; J2405; J7030 ×2; G0378 ×3